=== PATIENT | male | born 1975 | race African-American/Black ===

== ENCOUNTER 2024-03-31 09:31 | Emergency (ER) | payer BC ==
[2024-03-31 09:42] VITALS: BP 144/94; PULSE 87; RESP 16; TEMP 97.8; BMI 20.3
== END 2024-03-31 14:00 | disposition home or self-care (01) ==
LOC: JER 09:31 → JERFT 09:31
DX: R04.2 Hemoptysis (principal); R09.89 Other specified symptoms and signs involving the circulatory and respiratory systems; Z20.822 Contact with and (suspected) exposure to COVID-19
CPT/HCPCS: 0241U-QW; 71046-TC-FY; 71250-TC; 99285-25